=== PATIENT | male | born 1945 | race Caucasian/White ===

== ENCOUNTER 2020-06-24 10:26 | Emergency (ER) | payer MEDICARE ==
[~2020-06-24] VITALS: Ht 188 cm; Wt 106.8 kg
[2020-06-24 11:10] LABS: BASOPHILS # (AUTO) 0.1 X10'3 (0-0.2); EOSINOPHILS # (AUTO) 0.2 X10'3 (0-0.9); EOSINOPHILS % (AUTO) 3.9 % (0-6); HEMATOCRIT 48.2 % (42.0-52.0); HEMOGLOBIN 16.5 g/dl (14.0-17.9); LYMPHOCYTES # (AUTO) 1.5 X10'3 (1.1-4.8); LYMPHOCYTES % (AUTO) 28.1 % (21-51); MEAN CORPUSCULAR HEMOGLOBIN 31.1 PG (27.0-31.0); MEAN CORPUSCULAR HGB CONC 34.2 g/dL (33.0-36.5); MEAN PLATELET VOLUME 7.2 FL (7.4-10.4); MONOCYTES # (AUTO) 0.5 X10'3 (0-0.9); MONOCYTES % (AUTO) 9.5 % (2-12); NEUTROPHILS # (AUTO) 3.1 X10'3 (1.8-7.7); NEUTROPHILS % (AUTO) 57.5 % (42-75); PLATELET COUNT 159 X10'3 (140-440); RED CELL DISTRIBUTION WIDTH 13.7 % (11.5-14.5); WHITE BLOOD COUNT 5.3 X10'3 (4.5-11.0)
[2020-06-24 11:29] LABS: ALANINE AMINOTRANSFERASE 22 U/L (12-78); ANION GAP 8 (8-16); CHLORIDE 106 MMOL/L (99-107); SODIUM 143 MMOL/L (135-145); TOTAL CARBON DIOXIDE 28.7 MMOL/L (24-32)
[2020-06-24 11:48] LABS: ALBUMIN 3.7 G/DL (3.4-5.0); ALBUMIN/GLOBULIN RATIO 0.9 (1.1-1.5); ALKALINE PHOSPHATASE 63 IU/L (46-116); ASPARTATE AMINO TRANSFERASE 24 U/L (10-37); BILIRUBIN,TOTAL 0.5 MG/DL (0.1-1.0); BLOOD UREA NITROGEN 21 MG/DL (7-18); BUN/CREATININE RATIO 17.8 (5.4-32.0); CALCIUM 9.5 MG/DL (8.5-10.1); CREATININE 1.18 MG/DL (0.60-1.10); GLUCOSE 110 MG/DL (70-104); TOTAL PROTEIN 7.9 G/DL (6.4-8.2); eGFR 60 ML/MIN
[2020-06-24 12:31] VITALS: BP 137/92
== END 2020-06-24 12:32 | disposition home or self-care (01) ==
LOC: ER 10:26
DX: I48.0 Paroxysmal atrial fibrillation (principal); I48.91 Unspecified atrial fibrillation; E78.00 Pure hypercholesterolemia, unspecified; I10 Essential (primary) hypertension
CPT/HCPCS: 36415; 71045; 80053; 83880; 84484; 85025; 93005; 99285

== ENCOUNTER 2023-11-16 19:07 | Emergency (ER) | payer MEDICARE, OTHER ==
[~2023-11-16] VITALS: Ht 188 cm; Wt 101.9 kg
[2023-11-16 19:48] VITALS: PULSE 84
[2023-11-16] MEDS: oxyCODONE/APAP 10/325mg tablet PO ONE (20:01)
[2023-11-16] MEDS: dexamethasone sod phosphate 10mg/ml inj IM STA (20:01)
[2023-11-16] MEDS ORDERED: PRED20TA PO (20:29)
[2023-11-16] MEDS ORDERED: OXYC-150 PO (20:29)
[2023-11-16 20:49] VITALS: BP 145/80; RESP 15; TEMP 98.3; O2SAT 99
== END 2023-11-16 20:52 | disposition home or self-care (01) ==
LOC: ER 19:08
DX: M54.50 Low back pain, unspecified (principal); I10 Essential (primary) hypertension; I48.91 Unspecified atrial fibrillation; E78.00 Pure hypercholesterolemia, unspecified
CPT/HCPCS: 96372; 99283; J1100